=== PATIENT | male | born 1980 | race Asian ===

== ENCOUNTER 2019-03-26 14:20 | Emergency (ER) | payer OTHER ==
--- NOTE | 2019-03-26 15:51 | UC ---
Lower Extremity/Ankle HPI - HPI Summary HPI Summary: 5 DAYS AGO WHILE PLAYING TENNIS PATIENT THINKS HE ROLLED HIS LEFT TOES UNDER HIS FOOT WHILE LUNGING FOR A BALL. SINCE THEN HE HAS HAD PROGRESSIVELY WORSENING LEFT GREAT TOE PAIN AND MILD SWELLING. - History of Current Complaint Chief Complaint: UCLowerExtremity Stated Complaint: LT TOE Time Seen by Provider: 03/26/19 14:39 Hx Obtained From: Patient, Family/Mold Capper Helper - Onset/Duration: Gradual Onset, Lasting Days, Still Present Severity Initially: Mild Severity Currently: Moderate Pain Intensity: 5 Pain Scale Used: 0-10 Numeric Aggravating Factor(s): Standing, Ambulation Alleviating Factor(s): Rest, Elevation Able to Bear Weight: Yes - Allergies/Home Medications Allergies/Adverse Reactions: Allergies Allergy/AdvReac Type Severity Reaction Status Date / Time No Known Allergies Allergy Verified 03/26/19 14:45 Home Medications: Home Medications NK [No Home Medications Reported] 03/26/19 [History Confirmed 03/26/19] PMH/Surg Hx/FS Hx/Imm Hx Previously Healthy: Yes - Surgical History Surgical History: None - Family History Known Family History: Positive: Non-Contributory - Social History Alcohol Use: None Substance Use Type: None Smoking Status (MU): Never Smoked Tobacco Review of Systems All Other Systems Reviewed And Are Negative: Yes Constitutional: Positive: Negative Skin: Positive: Negative Respiratory: Positive: Negative Cardiovascular: Positive: Negative Gastrointestinal: Positive: Negative Musculoskeletal: Positive: Arthralgia, Edema Physical Exam Triage Information Reviewed: Yes Appearance: Well-Appearing, No Pain Distress, Well-Nourished Vital Signs: Initial Vital Signs Temp 97.9 F 03/26/19 14:40 Pulse 77 03/26/19 14:40 Resp 18 03/26/19 14:40 BP 121/71 03/26/19 14:40 Pulse Ox 99 03/26/19 14:40 Vital Signs Reviewed: Yes Eyes: Positive: Conjunctiva Clear ENT: Positive: Hearing grossly normal Neck: Positive: Supple Respiratory: Positive: No respiratory distress, No accessory muscle use Cardiovascular: Positive: Pulses Normal Abdomen Description: Positive: Soft Musculoskeletal: Positive: ROM Intact, Edema @ - MILD LEFT FOOT EDEMA Neurological: Positive: Alert Psychological: Positive: Age Appropriate Behavior Skin: Negative: Rashes Diagnostics - Radiology LEFT GREAT TOE XRAY Radiology Interpretation Completed By: Radiologist Summary of Radiographic Findings: There is no radiographically apparent acute fracture or other acute. abnormality. Lower Extremity Course/Dx - Course Course Of Treatment: X-RAY TODAY UNREMARKABLE. POSTOP SHOE GIVEN FOR COMFORT AND MOBILITY. ADVISED OTC IBUPROFEN OR ALEVE NEEDED FOR DISCOMFORT. REST, ICE, ELEVATE. FOLLOW- UP WITH HIS ORTHOPEDIST IN [place] IF HE DOES NOT IMPROVE EXPECTED OVER THE NEXT 1-2 WEEKS. - Differential Dx/Diagnosis Provider Diagnosis: Sprain of left great toe Discharge - Sign-Out/Discharge Documenting (check all that apply): Patient Departure All imaging exams completed and their final reports reviewed: Yes - Discharge Plan Condition: Stable Disposition: HOME Patient Education Materials: Foot Sprain (ED) Referrals: No Primary Care Phys,NOPCP [Primary Care Provider] - Additional Instructions: XRAY TODAY NEGATIVE FOR FRACTURE OR DISLOCATION. YOUR SYMPTOMS SHOULD IMPROVE SIGNIFICANTLY OVER THE NEXT 1-2 WEEKS. IF YOU DO NOT IMPROVE EXPECTED FOLLOW- UP WITH YOUR PCP OR YOUR ORTHOPEDIST IN [place]. YOU MAY BENEFIT FROM REPEAT IMAGING AT THAT TIME. OTC IBUPROFEN OR ALEVE NEEDED FOR DISCOMFORT. REST, ICE , ELEVATE. POST-OP SHOE NEEDED FOR SYMPTOM RELIEF. - Billing Disposition and Condition Condition: STABLE Disposition: Home
== END 2019-03-26 15:50 | disposition home or self-care (01) ==
LOC: UCEAST 14:20
DX: S93.502A Unspecified sprain of left great toe, initial encounter (principal); W18.39XA Other fall on same level, initial encounter; Y93.73 Activity, racquet and hand sports; Y92.312 Tennis court as the place of occurrence of the external cause; Y99.8 Other external cause status
CPT/HCPCS: 99202; G0463